=== PATIENT | female | born 1975 | race Hispanic/Latino ===

== ENCOUNTER → 2023-03-13 | Outpatient (CLI) | payer OTHER ==
[2023-03-13 22:39] VITALS: PULSE 72; PULSE 74; RESP 20
[2023-03-13 23:00] VITALS: PULSE 76; RESP 20
[2023-03-13 23:30] VITALS: PULSE 76; RESP 20
[2023-03-14] VITALS (11 sets, daily range): PULSE 66–88; RESP 16–20
== END | disposition home or self-care (01) ==
LOC: SLP 20:30
PROVIDERS: ATTEND Internal Medicine Cardiovascular Disease
DX: G47.30 Sleep apnea, unspecified (principal)
CPT/HCPCS: 95810